=== PATIENT | male | born 1980 | race Caucasian/White ===

== ENCOUNTER 2022-12-11 15:00 | Emergency (ER) | payer OTHER, SELFPAY ==
[2022-12-11 15:03] VITALS: PULSE 113; RESP 21; TEMP 36.4; BMI 23.1
[2022-12-11 15:07] VITALS: BP 133/108
--- NOTE | 2022-12-11 15:11 | PC.NURSE ---
Addendum entered by Kamla Chung 12/11/22 16:52: 1651 correction Narcan was administered at time stated dosing was 2mg not 4mg. Ernesto Chung RN Original Note: 12/11/22 1511 PT UNRESPONSIVE AT HOME PT DIAPHORETIC DIABETIC EMS ARRIVES, IV OBTAINED BG 456. SUBSTANCE FOUND IN POCKET TAKEN BY POLICE. PT ALERT UPON ARRIVAL BUT SOON HAD SNORES RESPIRATIONS EYES ROLLING BACK IN HEAD, ADMINISTERED 4MG IV NARCAN PT QUICKLY BECAME ALERT. STRIAGHT CATH FOR URINE SAMPLE, SINUS RHYTHM EKG OBTAINED AND GIVEN TO DR BYRD. BP 133/108 P 98 R12 SPO2 100% RA.
[2022-12-11 15:12] VITALS: PULSE 90; RESP 21; O2SAT 99
[2022-12-11 15:23] LABS: Bilirubin Urine NEGATIVE (NEGATIVE); Blood Urine NEGATIVE (NEGATIVE); Clarity Urine CLEAR (CLEAR); Color Urine LT. YELLOW (YELLOW); Glucose Urine UA >=1000 mg/dL (NEGATIVE); Ketones Urine NEGATIVE (NEGATIVE); Leukocyte Esterase Urine NEGATIVE (NEGATIVE); Nitrite Urine NEGATIVE (NEGATIVE); Protein Urine NEGATIVE (NEG/TRACE); Specific Gravity Urine <=1.005 (1.005-1.025); Urobilinogen Urine 0.2 EU/dL (0.2-1.0)
[2022-12-11 15:29] LABS: Urine Microscopic Indicated NO
[2022-12-11 15:35] LABS: Amphetamine Screen Urine POSITIVE (NEGATIVE); Barbiturates Screen Urine NEGATIVE (NEGATIVE); Benzodiazepines Screen Urine NEGATIVE (NEGATIVE); Cannabinoid Screen Urine POSITIVE (NEGATIVE); Cocaine Screen Urine NEGATIVE (NEGATIVE); Methadone Screen Urine NEGATIVE (NEGATIVE); Methamphetamines Screen Urine POSITIVE (NEGATIVE); Opiate Screen Urine NEGATIVE (NEGATIVE); Phencyclidine Screen Urine NEGATIVE (NEGATIVE); Tricyclic Antidepressant Urine NEGATIVE (NEGATIVE)
[2022-12-11 15:36] LABS: Buprenorphine Screen Urine NEGATIVE (NEGATIVE); Oxycodone Screen Urine NEGATIVE (NEGATIVE)
[2022-12-11 16:00] LABS: Basophils Percent Auto 0.7 % (0.2-2.0); Eosinophils Absolute Auto 0.1 10^3/uL (0.0-0.7); Eosinophils Percent Auto 1.2 % (0.9-7.0); Hematocrit 30.8 % (42.0-54.0); Hemoglobin 10.3 g/dL (14.0-18.0); Immature Granulocytes Abs Auto 0.01 10^3/uL (0.00-0.03); Immature Granulocytes Pct Auto 0.2 % (0.0-0.5); Lymphocytes Absolute Auto 1.9 10^3/uL (1.2-3.8); Lymphocytes Percent Auto 31.7 % (20.5-60.0); Mean Corpuscular HGB Conc 33.4 g/dL (29.9-35.2); Mean Corpuscular Hemoglobin 28.9 pg (25.9-34.0); Mean Corpuscular Volume 86.5 fL (80.0-94.0); Mean Platelet Volume 9.4 fL (9.5-13.5); Monocytes Absolute Auto 0.6 10^3/uL (0.3-0.8); Monocytes Percent Auto 10.2 % (1.7-12.0); Neutrophils Absolute Auto 3.3 10^3/uL (1.4-6.5); Platelet Count 236 10^3/uL (150-450); Red Blood Count 3.56 10^6/uL (4.70-6.10); Red Cell Distribution Width 12.4 % (11.0-15.0)
[2022-12-11 16:15] LABS: Alanine Aminotransferase 27 U/L (16-63); Albumin Level 3.4 g/dL (3.4-5.0); Alkaline Phosphatase 76 U/L (46-116); Anion Gap 7.4; Aspartate Amino Transferase 17 U/L (15-37); BUN Creatinine Ratio 21.6; Bilirubin Total 0.2 mg/dL (0.2-1.0); Carbon Dioxide 34.1 mmol/L (21.0-32.0); Chloride 98 mmol/L (98-107); Estimated GFR (African America >60 (>=60); Estimated GFR (Non-African Ame >60 (>=60); Globulin 3.3 g/dL; Glucose 268 mg/dL (74-106); Potassium 4.5 mmol/L (3.5-5.1); Sodium 135 mmol/L (136-145); Total Protein 6.7 g/dL (6.4-8.2)
[2022-12-11 16:16] LABS: Ethanol <3 mg/dL
--- NOTE | 2022-12-11 16:46 | ED.AMS1 ---
HPI - Altered Mental Status General Chief Complaint: Altered Mental Status Stated Complaint: Overdose Time Seen by Provider: 12/11/22 15:26 Source: patient Source comment: PATIENT Mode of arrival: ambulance Limitations: no limitations Limitations comment: SUSPECTED INTOXICATION History of Present Illness HPI narrative: The patient presenting to us with a ultimately status after he was found unconscious by the EMS initially he woke up right away and they did not give him any Narcan but upon presentation to the ER he was sleepy and he was given Narcan, the patient in the ER denies any complaint he did mention that he was concerned about his blood sugar yesterday as it was low when he was sleeping he denies any other complaint at the moment The patient admits of drug use and he is not suicidal Related Data Allergies Allergy/AdvReac Type Severity Reaction Status Date / Time No Known Drug Allergies Allergy Verified 12/11/22 15:10 Review of Systems ROS Status of ROS 10 or more systems reviewed and unremarkable except as noted in history and below PFSH PFSH Social History Smoking status: Current every day smoker Exam Narrative Exam Narrative: Nurses notes and vital signs reviewed and patient is not hypoxic. General: Well-appearing and in no apparent distress. Skin: Warm, dry, no pallor noted. No rash. Head: Normocephalic, atraumatic. Neck: Supple, non-tender. Eye: Pupils are equal, round and EOMI. No scleral icterus. Ears, Nose, Mouth, and Throat: TM are clear, no nasal mucosal hypertrophy. Oral mucosa is moist, no posterior oropharynx erythema, uvula is mid-line Cardiovascular: Regular Rate and Rhythm without murmur, gallop or rub. Respiratory: No accessory muscle use or respiratory distress. Lungs are clear to auscultation, no wheezing, rales or rhonchi Chest Wall: no tenderness Back: No midline thoracic or lumbar vertebral tenderness. No CVA tenderness Musculoskeletal: normal ROM, no calf or popliteal tenderness, no lower extremity edema/swelling GI: Abdomen is soft, non-distended. Normal bowel sounds. No masses appreciated. No tenderness to palpation. No rebound, guarding, or rigidity noted. Neurological: A&O x4. No cranial nerve dysfunction observed. No truncal ataxia. Moves all extremities. Sensation intact. Psychiatric: Cooperative and interactive. Normal mood and affect. Constitutional Vital Signs, click to edit/add: Last Vital Signs Temp 97.5 F L 10/01/23 15:03 Pulse 90 12/11/22 15:12 Resp 21 12/11/22 15:12 BP 133/108 H 12/11/22 15:07 Pulse Ox 99 12/11/22 15:12 Course Vital Signs Vital signs: Vital Signs Temperature 97.5 F L 12/11/22 15:03 Pulse Rate 113 H 12/11/22 15:03 Respiratory Rate 21 12/11/22 15:03 Temperature 97.5 F L 12/11/22 15:03 Pulse Rate 90 12/11/22 15:12 Respiratory Rate 21 12/11/22 15:12 Blood Pressure 133/108 H 12/11/22 15:07 Pulse Oximetry 99 12/11/22 15:12 MDM - Altered Mental Status MDM Narrative Medical decision making narrative: Right now the patient examination is benign his EKG in the ER showing sinus rhythm with a heart rate of [address] elevation or depression CBC and chemistry showed elevated blood sugar above 300 and there was no blood sugar low results recorded The patient tox screen is positive for amphetamine and he did respond to Narcan in the ER The patient was monitored in the ER at least for 90 minutes after which she had no symptoms he was discharged with instruction of the harmful effect of the drugs as well as monitoring his blood sugars at home The patient is to follow up with primary care physician in next 2-3 days or to return to the emergency department should any of the signs or symptoms worsen or new symptoms develop. The patient agrees with the following Diagnosis and Treatment plan and the patient will be discharged home. Lab Data Labs: Lab Results 12/11/22 12/11/22 Range/Units 15:12 15:47 WBC 6.0 (4.0-11.0) 10^3/uL RBC 3.56 L (4.70-6.10) 10^6/uL Hgb 10.3 L (14.0-18.0) g/dL Hct 30.8 L (42.0-54.0) % MCV 86.5 (80.0-94.0) fL MCH 28.9 (25.9-34.0) pg MCHC 33.4 (29.9-35.2) g/dL RDW 12.4 (11.0-15.0) % Plt Count 236 (150-450) 10^3/uL MPV 9.4 L (9.5-13.5) fL Neut % (Auto) 56.0 (43.0-75.0) % Lymph % (Auto) 31.7 (20.5-60.0) % [place] % (Auto) 10.2 (1.7-12.0) % Eos % (Auto) 1.2 (0.9-7.0) % Baso % (Auto) 0.7 (0.2-2.0) % Neut # (Auto) 3.3 (1.4-6.5) 10^3/uL Lymph # (Auto) 1.9 (1.2-3.8) 10^3/uL [place] # (Auto) 0.6 (0.3-0.8) 10^3/uL Eos # (Auto) 0.1 (0.0-0.7) 10^3/uL Baso # (Auto) 0.0 (0.0-0.1) 10^3/uL Abs Immat Gran (auto) 0.01 (0.00-0.03) 10^3/uL Imm/Tot Granulo (auto) 0.2 (0.0-0.5) % Sodium 135 L (136-145) mmol/L Potassium 4.5 (3.5-5.1) mmol/L Chloride 98 (98-107) mmol/L Carbon Dioxide 34.1 H (21.0-32.0) mmol/L Anion Gap 7.4 BUN 24.0 H (7.0-18.0) mg/dL Creatinine 1.11 (0.70-1.30) mg/dL Est GFR ( Amer) >60 (>=60) Est GFR (Non-Af Amer) >60 (>=60) BUN/Creatinine Ratio 21.6 Glucose 268 H (74-106) mg/dL Calcium 9.0 (8.5-10.1) mg/dL Total Bilirubin 0.2 (0.2-1.0) mg/dL AST 17 (15-37) U/L ALT 27 (16-63) U/L Alkaline Phosphatase 76 (46-116) U/L Total Protein 6.7 (6.4-8.2) g/dL Albumin 3.4 (3.4-5.0) g/dL Globulin 3.3 g/dL Albumin/Globulin Ratio 1.0 Urine Color Lt. yellow (YELLOW) Urine Clarity Clear (CLEAR) Urine pH 6.0 (5.0-9.0) Ur Specific [place] <=1.005 A (1.005-1.025) Urine Protein Negative (NEG/TRACE) mg/dL Urine Glucose (UA) >=1000 A (NEGATIVE) mg/dL Urine Ketones Negative (NEGATIVE) mg/dL Urine Occult Blood Negative (NEGATIVE) Urine Nitrite Negative (NEGATIVE) Urine Bilirubin Negative (NEGATIVE) Urine Urobilinogen 0.2 (0.2-1.0) EU/dL Ur Leukocyte Esterase Negative (NEGATIVE) Urine Opiates Screen Negative (NEGATIVE) Ur Buprenorphine Scrn Negative (NEGATIVE) Ur Oxycodone Screen Negative (NEGATIVE) Urine Methadone Screen Negative (NEGATIVE) Ur Propoxyphene Screen Negative (NEGATIVE) Ur Barbiturates Screen Negative (NEGATIVE) U Tricyclic Antidepress Negative (NEGATIVE) Ur Phencyclidine Scrn Negative (NEGATIVE) Ur Amphetamines Screen Positive A (NEGATIVE) U Methamphetamines Scrn Positive A (NEGATIVE) U Benzodiazepines Scrn Negative (NEGATIVE) Urine Cocaine Screen Negative (NEGATIVE) U Cannabinoids Screen Positive A (NEGATIVE) Ethanol Quant <3 mg/dL Discharge Plan Discharge Chief Complaint: Altered Mental Status Clinical Impression: Drug abuse Patient Disposition: Home, Self-Care Time of Disposition Decision: 16:45 Condition: Good Instructions: Polysubstance Use Disorder (ED) Stand Alone Forms: Portal Instructions Referrals: Physician,Non-Staff, MD [Primary Care Provider] - 1 week
--- NOTE | 2022-12-11 16:48 | ECG_ITS ---
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
== END 2022-12-11 17:02 | disposition home or self-care (01) ==
PROVIDERS: Emergency Provider Emergency Medicine
DX: F15.10 Other stimulant abuse, uncomplicated (principal); F17.210 Nicotine dependence, cigarettes, uncomplicated
CPT/HCPCS: 36415; 80053; 80307; 80320; 81003; 85025; 93005; 99285

== ENCOUNTER 2023-08-07 01:21 | Emergency (ER) | payer SELFPAY ==
[2023-08-07 01:28] VITALS: BP 135/97; PULSE 85; TEMP 37.2; O2SAT 100; BMI 19.0
[2023-08-07 01:45] LABS: Glucometer 165 mg/dL (74-106)
--- NOTE | 2023-08-07 02:14 | ECG_ITS ---
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
--- NOTE | 2023-08-07 02:15 | ED.GENADUL1 ---
HPI HPI - General Adult General Chief complaint: Nausea/Vomiting/Diarrhea Stated complaint: BLOOD SUGAR ISSUES Time Seen by Provider: 08/07/23 01:51 Source: patient and family Mode of arrival: walk-in Limitations: no limitations History of Present Illness HPI narrative: This 42-year-old male with a history of type 1 diabetes that was diagnosed in 2020 presents for evaluation of blood sugars that have been high and low recently. He is seeing a tobacco prevention health educator at [facility]. He has a monitoring device that monitors his blood glucose. He has recently been high which likely indicates over 500 and then dropping into the 160s and 180s. He was told by the tobacco prevention health educator to come to the emergency department if his glucose is under 200 because he has had so many readings that were over 500. He admits that he has a hard time following the diabetic diet. His mother states that he barely eats. He states while he was incarcerated and working out his blood sugars were very well-controlled but since being out of [facility] for the past 2 years he is having trouble managing it himself. He has not recently had any change in his medications. He has not recently had any DKA. He states that his legs are swelling and he is having cramps in his legs. Related Data Home Medications ?Medication ?Instructions ?Recorded ?Confirmed bupropion HCl 300 mg 24 hr tablet, mg PO 08/07/23 extended release duloxetine 60 mg capsule,delayed mg PO 08/07/23 release insulin aspart U-100 100 unit/mL subcut 08/07/23 (3 mL) subcutaneous pen insulin glargine 100 unit/mL (3 unit subcut 08/07/23 mL) subcutaneous pen (Lantus Solostar U-100 Insulin) metformin 1,000 mg tablet mg 08/07/23 olmesartan 5 mg tablet mg 08/07/23 omeprazole 40 mg capsule,delayed mg 08/07/23 release tizanidine 4 mg tablet mg 08/07/23 Allergies Allergy/AdvReac Type Severity Reaction Status Date / Time No Known Drug Allergies Allergy Verified 12/11/22 15:10 Opioid HPI Opioid Management Most Recent Opioid Data: Ur Phencyclidine Scrn Negative (NEGATIVE) 12/11/22 15:12 Review of Systems ROS Status of ROS 10 or more systems reviewed and unremarkable except as noted in history and below PFSH PFSH Social History Smoking status: Current every day smoker Exam Narrative Exam Narrative: Vital signs and Nursing Notes reviewed: General: Awake, alert, oriented, no acute distress, lying comfortably on the stretcher HEENT: Normocephalic atraumatic, mucous membranes are slightly dry, patient is partially edentulous. Neck: Supple, no meningeal signs, no anterior or posterior cervical lymphadenopathy Chest: Lungs are clear to auscultation with good air entry, there is no wheezing rhonchi or rales appreciated no accessory muscle use, patient is speaking in complete sentences-no chest wall tenderness to palpation CVS: Regular rate and rhythm S1-S2, no murmurs rubs or gallops, pulses are brisk and equal bilaterally ABD: Soft, nondistended, nontender, no rebound guarding or rigidity, bowel sounds are normal, no pulsatile masses appreciated Extremities: Moving all extremities, no lower extremity tenderness or swelling noted, negative Homans' sign, pulses are brisk and equal bilaterally Skin: Normal in appearance without rash,pallor, petechiae or purpura, multiple tattoos, no sign of cellulitis Neuro: No focal deficits Constitutional Vital Signs, click to edit/add: Last Vital Signs Temp 98.9 F 08/07/23 01:28 Pulse 85 08/07/23 01:28 Resp 18 08/07/23 01:28 BP 135/97 H 08/07/23 01:28 Pulse Ox 100 08/07/23 01:28 O2 Del Method Room Air 08/07/23 01:28 Course Vital Signs Vital signs: Vital Signs Temperature 98.9 F 08/07/23 01:28 Pulse Rate 85 08/07/23 01:28 Respiratory Rate 18 08/07/23 01:28 Blood Pressure 135/97 H 08/07/23 01:28 Pulse Oximetry 100 08/07/23 01:28 Oxygen Delivery Method Room Air 08/07/23 01:28 Temperature 98.9 F 08/07/23 01:28 Pulse Rate 85 08/07/23 01:28 Respiratory Rate 18 08/07/23 01:28 Blood Pressure 135/97 H 08/07/23 01:28 Pulse Oximetry 100 08/07/23 01:28 Oxygen Delivery Method Room Air 08/07/23 01:28 Medical Decision Making [facility] Narrative Medical decision making narrative: This 42-year-old male with a history of type 1 diabetes who states he is having a hard time controlling his sugar and was told to go to the hospital if his sugar should drop below 200 by a tobacco prevention health educator recently presents for evaluation of an episode of vomiting earlier in the evening with low blood sugar. He has no chest pain or shortness of breath. He has not had a fever. He states he is trying to get an insulin pump and has been trying to get his glucose controlled in order to qualify for that. He has not had a fever. I did note that during a recent ER visit he had to be given Narcan. I did not discuss this with him because he is in the emergency department with his girlfriend and mother. He states that he cannot seem to gain any weight. His glucose upon arrival was under 200. EKG done upon arrival is normal sinus rhythm at 75 bpm with no acute changes. An IV was placed and he was medicated with IV fluids and Zofran. He has not had any recurrent vomiting in the emergency department. Routine labs were ordered and are reviewed. He has normal white count and hemoglobin. He has a normal calcium and magnesium. Acetone is negative. CO2 is normal at 32.5. BUN and creatinine are normal. Urine is negative for infection but he is spilling glucose into his urine. The results of his labs and urine were discussed with him. We talked extensively about following a diabetic diet and including exercise and abstaining from drugs or alcohol. He does not appear to be very well versed in the ADA recommendations for diabetics but is seeing a tobacco prevention health educator at [facility]. At this point I feel it is safest for him to be discharged home. I encouraged him to eat a well-balanced diet multiple small meals a day and return to the emergency department as needed for worsening symptoms. He is nontoxic, no sign of DKA. Medical Records Medical records reviewed: Yes I reviewed the patient's medical records Lab Data Lab results reviewed: Yes I reviewed the patient's lab results Lab results narrative: Labs are unremarkable Labs: Lab Results 08/07/23 08/07/23 08/07/23 Range/Units 01:44 02:45 02:46 WBC 5.8 (4.0-11.0) 10^3/uL RBC 3.76 L (4.70-6.10) 10^6/uL Hgb 10.9 L (14.0-18.0) g/dL Hct 34.1 L (42.0-54.0) % MCV 90.7 (80.0-94.0) fL MCH 29.0 (25.9-34.0) pg MCHC 32.0 (29.9-35.2) g/dL RDW 12.7 (11.0-15.0) % Plt Count 193 (150-450) 10^3/uL MPV 10.0 (9.5-13.5) fL Neut % (Auto) 57.0 (43.0-75.0) % Lymph % (Auto) 32.0 (20.5-60.0) % [place] % (Auto) 7.6 (1.7-12.0) % Eos % (Auto) 1.5 (0.9-7.0) % Baso % (Auto) 1.0 (0.2-2.0) % Neut # (Auto) 3.3 (1.4-6.5) 10^3/uL Lymph # (Auto) 1.9 (1.2-3.8) 10^3/uL [place] # (Auto) 0.4 (0.3-0.8) 10^3/uL Eos # (Auto) 0.1 (0.0-0.7) 10^3/uL Baso # (Auto) 0.1 (0.0-0.1) 10^3/uL Abs Immat Gran (auto) 0.05 H (0.00-0.03) 10^3/uL Imm/Tot Granulo (auto) 0.9 H (0.0-0.5) % Sodium 139 (136-145) mmol/L Potassium 4.5 (3.5-5.1) mmol/L Chloride 101 (98-107) mmol/L Carbon Dioxide 32.5 H (21.0-32.0) mmol/L Anion Gap 10.0 BUN 23.0 H (7.0-18.0) mg/dL Creatinine 0.94 (0.70-1.30) mg/dL Est GFR ( Amer) >60 (>=60) Est GFR (Non-Af Amer) >60 (>=60) BUN/Creatinine Ratio 24.5 Glucose 158 H (74-106) mg/dL Calcium 9.0 (8.5-10.1) mg/dL Magnesium 1.9 (1.8-2.4) mg/dL Total Bilirubin 0.3 (0.2-1.0) mg/dL AST 32 (15-37) U/L ALT 36 (16-63) U/L Alkaline Phosphatase 88 (46-116) U/L Total Protein 7.0 (6.4-8.2) g/dL Albumin 3.6 (3.4-5.0) g/dL Globulin 3.4 g/dL Albumin/Globulin Ratio 1.1 Urine Color Lt. yellow (YELLOW) Urine Clarity Clear (CLEAR) Urine pH 8.0 (5.0-9.0) Ur Specific [place] 1.015 (1.005-1.025) Urine Protein Negative (NEG/TRACE) mg/dL Urine Glucose (UA) >=1000 A (NEGATIVE) mg/dL Urine Ketones Negative (NEGATIVE) mg/dL Urine Occult Blood Negative (NEGATIVE) Urine Nitrite Negative (NEGATIVE) Urine Bilirubin Negative (NEGATIVE) Urine Urobilinogen 0.2 (0.2-1.0) EU/dL Ur Leukocyte Esterase Negative (NEGATIVE) Urine RBC None seen (0-2) #/HPF Urine WBC None seen (NONE SEEN) #/HPF Ur Squamous Epith Cells None seen (NONE/RARE) #/LPF Urine Crystals None seen (None Seen) #/HPF Amorphous Sediment Many Urine Bacteria None seen (NONE SEEN) #/HPF Urine Casts None seen (NONE SEEN) #/LPF Urine Mucus None seen (NONE SEEN) Ur Culture Indicated? No Acetone, Qual Negative (NEGATIVE) POC Glucose 165 H (74-106) mg/dL ECG Data Attestation: I personally reviewed and interpreted this ECG as follows: (Sinus rhythm at 75 bpm, normal axis, normal intervals, Q-wave noted in lead V1 V2, no acute ST segment elevation or T wave inversion) Discharge Plan Discharge Stand Alone Forms: Portal Instructions Chief Complaint: Nausea/Vomiting/Diarrhea Clinical Impression: Patient concern regarding diabetes mellitus Patient Disposition: Home, Self-Care Time of Disposition Decision: 03:56 Condition: Good Prescriptions / Home Meds: No Action tizanidine 4 mg tablet omeprazole 40 mg capsule,delayed release(DR/EC) metformin 1,000 mg tablet olmesartan 5 mg tablet insulin aspart U-100 100 unit/mL (3 mL) insulin pen SUBCUT bupropion HCl 300 mg tablet extended release 24 hr PO duloxetine 60 mg capsule,delayed release(DR/EC) PO insulin glargine [Lantus Solostar U-100 Insulin] 100 unit/mL (3 mL) insulin pen SUBCUT Print Language: [place] Instructions: What to Do if Your Blood Sugar is Low (ED), Diabetes and Nutrition (ED) Referrals: Physician,Non-Staff, MD [Primary Care Provider] - 1 week
[2023-08-07] MEDS: ONDANSETRON PF 4 MG/2 ML VIAL IV (02:56)
[2023-08-07] MEDS: 0.9 % SODIUM CHLORIDE 1,000 ML 1000 ML IV (02:56)
[2023-08-07 02:57] LABS: Bilirubin Urine NEGATIVE (NEGATIVE); Blood Urine NEGATIVE (NEGATIVE); Clarity Urine CLEAR (CLEAR); Color Urine LT. YELLOW (YELLOW); Glucose Urine UA >=1000 mg/dL (NEGATIVE); Ketones Urine NEGATIVE (NEGATIVE); Leukocyte Esterase Urine NEGATIVE (NEGATIVE); Nitrite Urine NEGATIVE (NEGATIVE); Protein Urine NEGATIVE (NEG/TRACE); Specific Gravity Urine 1.015 (1.005-1.025); Urobilinogen Urine 0.2 EU/dL (0.2-1.0)
[2023-08-07 03:03] LABS: Amorphous Sediment Urine MANY; Bacteria Urine NONE SEEN #/HPF (NONE SEEN); Cast Seen? NONE SEEN #/LPF (NONE SEEN); Crystals Seen? None Seen #/HPF (None Seen); Mucus Urine NONE SEEN (NONE SEEN); RBC Urine NONE SEEN #/HPF (0-2); Squamous Epithelial Cell Urine NONE SEEN #/LPF (NONE/RARE); Urine Culture Indicated NO; WBC Urine NONE SEEN #/HPF (NONE SEEN)
[2023-08-07 03:04] LABS: Magnesium 1.9 mg/dL (1.8-2.4)
[2023-08-07 03:09] LABS: Acetone NEGATIVE (NEGATIVE)
[2023-08-07 03:10] LABS: Alanine Aminotransferase 36 U/L (16-63); Albumin Globulin Ratio 1.1; Albumin Level 3.6 g/dL (3.4-5.0); Alkaline Phosphatase 88 U/L (46-116); Aspartate Amino Transferase 32 U/L (15-37); BUN Creatinine Ratio 24.5; Bilirubin Total 0.3 mg/dL (0.2-1.0); Carbon Dioxide 32.5 mmol/L (21.0-32.0); Chloride 101 mmol/L (98-107); Estimated GFR (African America >60 (>=60); Estimated GFR (Non-African Ame >60 (>=60); Globulin 3.4 g/dL; Glucose 158 mg/dL (74-106); Potassium 4.5 mmol/L (3.5-5.1); Sodium 139 mmol/L (136-145)
[2023-08-07 03:16] LABS: Basophils Absolute Auto 0.1 10^3/uL (0.0-0.1); Eosinophils Absolute Auto 0.1 10^3/uL (0.0-0.7); Eosinophils Percent Auto 1.5 % (0.9-7.0); Hematocrit 34.1 % (42.0-54.0); Hemoglobin 10.9 g/dL (14.0-18.0); Immature Granulocytes Abs Auto 0.05 10^3/uL (0.00-0.03); Immature Granulocytes Pct Auto 0.9 % (0.0-0.5); Lymphocytes Absolute Auto 1.9 10^3/uL (1.2-3.8); Mean Corpuscular Volume 90.7 fL (80.0-94.0); Monocytes Absolute Auto 0.4 10^3/uL (0.3-0.8); Monocytes Percent Auto 7.6 % (1.7-12.0); Neutrophils Absolute Auto 3.3 10^3/uL (1.4-6.5); Platelet Count 193 10^3/uL (150-450); Red Blood Count 3.76 10^6/uL (4.70-6.10); Red Cell Distribution Width 12.7 % (11.0-15.0); White Blood Count 5.8 10^3/uL (4.0-11.0)
== END 2023-08-07 04:23 | disposition home or self-care (01) ==
PROVIDERS: Emergency Provider Emergency Medicine
DX: E10.9 Type 1 diabetes mellitus without complications (principal)
CPT/HCPCS: 36415; 80053; 81001; 82009; 82948; 83735; 85025; 93005; 96374; 99284